=== PATIENT | female | born 1985 | race Caucasian/White ===

== ENCOUNTER → 2017-02-24 | Outpatient (CLI) | payer OTHER ==
[2017-02-24 13:08] LABS: AUTOMATED NEUTROPHIL # 3.8 TH/MM3 (1.8-7.7); BASOPHIL % 0.3 % (0.0-2.0); EOSINOPHIL # 0.1 TH/MM3 (0-0.4); EOSINOPHIL % 2.1 % (0.0-4.0); HEMATOCRIT 39.2 % (35.0-46.0); HEMO FLAGS DIFF FINAL; HEMOGLOBIN 13.5 GM/DL (11.6-15.3); LYMPH % 29.9 % (9.0-44.0); LYMPHOCYTE # 1.8 TH/MM3 (1.0-4.8); MEAN CELL VOLUME 87.4 FL (80.0-100.0); MEAN CORPUSCULAR HEMOGLOBIN 30.1 PG (27.0-34.0); MEAN CORPUSCULAR HGB CONC 34.4 % (32.0-36.0); MEAN PLATELET VOLUME 9.3 FL (7.0-11.0); MONO % 6.2 % (0.0-8.0); MONOCYTE # 0.4 TH/MM3 (0-0.9); NEUT % 61.5 % (16.0-70.0); PLATELET COUNT 198 TH/MM3 (150-450); RED BLOOD COUNT 4.48 MIL/MM3 (4.00-5.30); RED CELL DISTRIBUTION WIDTH 12.3 % (11.6-17.2); WHITE BLOOD COUNT 6.1 TH/MM3 (4.0-11.0)
[2017-02-24 13:22] LABS: BILIRUBIN, URINE NEG (NEG); BLOOD, URINE NEG (NEG); GLUCOSE,URINE NEG (NEG); KETONE, URINE NEG (NEG); NITRITE,URINE NEG (NEG); PH, URINE 7.5 (5.0-8.5); SQUAMOUS EPITHELIAL CELL URINE 1 /hpf (0-5); URINE COLOR LIGHT-YELLOW (YELLW/STRAW); URINE LEUKOCYTE ESTERASE NEG (NEG)
[2017-02-24 13:37] LABS: ANION GAP 7 MEQ/L (5-15); BICARBONATE 26.8 MEQ/L (21.0-32.0); BLOOD UREA NITROGEN 10 MG/DL (7-18); CHLORIDE 105 MEQ/L (98-107); CREATININE 0.65 MG/DL (0.50-1.00); GLOMERULAR FILTRATION RATE 104 ML/MIN (>89); GLUCOSE,FASTING 84 MG/DL (74-99); POTASSIUM 3.8 MEQ/L (3.5-5.1); SODIUM (NA) 139 MEQ/L (136-145)
[2017-02-24 14:53] LABS: BHCG SCREEN QUALITATIVE LESS THAN 1 MIU/ML (0-5)
[2017-02-24 18:37] LABS: HEMOGLOBIN A1C 4.8 % (4.3-6.0); HEMOGLOBIN A1a 1.1 %; HEMOGLOBIN A1b 0.7 %; HEMOGLOBIN Ao 86.3 %; HEMOGLOBIN F 1.4 %; HEMOGLOBIN LA1C 1.8 %; HEMOGLOBIN P3 3.3 %
== END ==
LOC: CPRE 11:07
DX: D25.9 Leiomyoma of uterus, unspecified (principal)
CPT/HCPCS: 36415; 80048; 81001; 83036; 84703; 85025; 86850; 86900; 86901

== ENCOUNTER 2017-02-26 05:17 | Observation (INO) | payer OTHER ==
[~2017-02-26] VITALS: Ht 170.2 cm; Wt 88.6 kg
[2017-02-26] MEDS ORDERED: GENTAMICIN INJ 130 MG in SODIUM CHLORIDE 0.9% INJ 100 ML IV PRN (05:45)
[2017-02-26] MEDS ORDERED: SODIUM CHLORID 0.9% 500 ML IV PRN (05:45)
[2017-02-26] MEDS ORDERED: LACTATED RINGER'S 1000 ML IV PRN (05:45)
[2017-02-26] MEDS ORDERED: POVIDONE IODINE 5% (ANTISEPSIS KIT) 4 APPLICATIONS EACH NARE PRN (05:45)
[2017-02-26] MEDS ORDERED: GABAPENTIN 300 MG CAP PO PRN (05:45)
[2017-02-26] MEDS ORDERED: ACETAMINOPHEN 500 MG CPLT PO PRN (05:45)
[2017-02-26] MEDS ORDERED: CLINDAMYCIN 900 MG/NS PREMIX 50 ML IV PRN (05:45)
[2017-02-26] MEDS ORDERED: CHLORHEXIDINE GLUCONATE 2 % 1 PACK (2 CLOTHS) TOPICAL PRN (05:45)
[2017-02-26] MEDS ORDERED: METOPROLOL TARTRATE 25 MG TAB PO PRN (05:45)
[2017-02-26] MEDS ORDERED: BUPIVACAINE/EPINEPHRINE 0.5% PF 10 ML VIAL ONE (07:32)
[2017-02-26] MEDS ORDERED: LACTATED RINGER'S 1000 ML INJ 1,000 ML IV SCH (10:51)
[2017-02-26] MEDS ORDERED: oxyCODONE/ACETAMINOPHEN 5 MG/325 MG TAB PO PRN (11:00)
[2017-02-26] MEDS ORDERED: ONDANSETRON ODT 4 MG TAB PO PRN (11:00)
[2017-02-26] MEDS: DOCUSATE SODIUM 100 MG CAP PO SCH (11:00)
[2017-02-26] MEDS ORDERED: ONDANSETRON HCL 4 MG/2 ML VIAL IVP PRN (11:00)
[2017-02-26] MEDS ORDERED: diphenhydrAMINE HCL 25 MG CAP PO PRN (11:00)
[2017-02-26] MEDS ORDERED: ZOLPIDEM TARTRATE 5 MG TAB PO PRN (11:00)
[2017-02-26] MEDS ORDERED: ACETAMINOPHEN/HYDROcodone 325 MG/5 MG TAB PO PRN (11:00)
--- NOTE | 2017-02-26 11:30 | HHI.PR ---
Immediate Post Op Note Procedure Date: Feb 26, 2017 Pre Op Diagnosis: (1) Fibroid, uterine (2) Dysmenorrhea Post Op Diagnosis: same as above with addition of cystotomy Surgeon: Brennen Stuart Hebrew Professor(s): none Procedure: TLH, BS, cysto, cystotomy repair, and vaginal laceration repair Findings: Normal pelvic anatomy other than fibroid uterus, parasitic fibroid attached to the bladder dome. Incidental cystotomy, approximately 2-3 cm, repaired with 3- 0 delayed absorbable stratafix suture. Small superficial distal vaginal laceration appreciated in the case, repaired with Monocryl Additional Information: Estimated blood loss 50 cc Urine output 500 cc Fluid replacement 1500 cc Specimens: Uterus, cervix, fallopian tubes to pathology Complications: Cystotomy Disposition to PACU then observation overnight Dictation number:[id number] Complications: cystotomy Specimen(s) removed: Uterus, cervix, fallopian tubes Estimated blood loss: 50 cc Anesthesia: General Drains: None IVF Urinary Output (mLs): 500 Patient to: PACU Patient Condition: Good Brennen Stuart MD Feb 26, 2017 11:30
--- NOTE | 2017-02-26 11:49 | HHI.DS ---
Discharge Summary Admission Date Feb 26, 2017 at 10:56 Discharge Date: Feb 27, 2017 Admitting Diagnosis Dysmenorrhea, fibroid uterus (1) Dysmenorrhea ICD Codes: N94.6 - Dysmenorrhea, unspecified (2) Fibroid, uterine ICD Codes: D25.9 - Leiomyoma of uterus, unspecified Procedures TLH, BS, Cysto, cystotomy repair Brief History 32 yo WF seen as an outpatient desiring hysterectomy, see H&P for details. underwent above procedure, was meeting milestones on POD #1 and was d/c home with gallego leg bag, plan to see pt in 1-2 weeks, likely remove leg bag in 10- 14 days. Significant Findings see operative report Hospital Course see history Pt Condition on Discharge: Good Discharge Disposition: Discharge Home Discharge Instructions DIET: Follow Instructions for: As Tolerated, No Restrictions Activities you can perform: Shower Only-No Bath, Shaving, Pelvic Rest, See Additionl Instruction (normal activities as tolerated no heavy lifting) Activities to avoid: Driving for 24 hrs, Lifting/Bending, Strenuous Activity, Sexual Activity Follow up Referrals: SCREEN WRITER - 1 Week @ [facility] with Brennen Stuart MD New Medications: Docusate Sodium (Colace) 100 Mg Capsule 100 MG PO BID for Constipation for 14 Days, #28 TAB Gabapentin (Gabapentin) 100 Mg Cap 100 MG PO TID for Pain Management for 10 Days, #90 CAP 0 Refills Ibuprofen (Ibuprofen) 600 Mg Tab 600 MG PO Q6H PRN for PAIN for 20 Days, #80 TAB 1 Refill Additional Information sent with percDriftToItet 5/325 #15 for breakthrough pain Brennen Stuart MD Feb 26, 2017 11:49
[2017-02-26] MEDS ORDERED: GABA100C4 PO (11:52)
[2017-02-26] MEDS ORDERED: IBUP-232 PO (11:52)
[2017-02-26] MEDS ORDERED: COLA100C5 PO (11:54)
[2017-02-26] MEDS ORDERED: MIDAZOLAM HCL 2 MG/2 ML VIAL ONE (11:55)
[2017-02-26] MEDS ORDERED: *morphine SULFATE 10 MG/ML PERIprocedure ONLY ONE (11:55)
[2017-02-26] MEDS ORDERED: GLYCOPYRROLATE 1 MG/5 ML SYRINGE IV PUSH ONE (12:00)
[2017-02-26] MEDS ORDERED: LIDOCAINE HCL 1% PF 5 ML SYRINGE OTHER ONE (12:00)
[2017-02-26] MEDS ORDERED: DEXAMETHASONE SOD PHOS 4 MG/ML VIAL IV ONE (12:00)
[2017-02-26] MEDS ORDERED: ONDANSETRON HCL 4 MG/2 ML VIAL IV ONE (12:00)
[2017-02-26] MEDS ORDERED: NEOSTIGMINE 5 MG/5 ML SYRINGE IV PUSH ONE (12:00)
[2017-02-26] MEDS ORDERED: ROCURONIUM INJ 50 MG/5 ML SYRINGE IV PUSH ONE (12:00)
[2017-02-26] MEDS ORDERED: PROPOFOL 200 MG/20 ML AMP IV ONE (12:00)
[2017-02-26 13:00] VITALS: BP 123/74; PULSE 53; RESP 12; TEMP 98; O2SAT 97
[2017-02-26] MEDS: KETOROLAC TROMETHAMINE 30 MG/ML (IVP) VIAL IVP SCH ×2 (13:31→18:13)
[2017-02-26] MEDS: GABAPENTIN 100 MG CAP PO SCH ×2 (13:31→18:12)
[2017-02-26] MEDS ORDERED: DO NOT ADM ANY ANTICOAGULANT DRUGS PRN (14:45)
[2017-02-26 17:55] VITALS: BP 123/74; PULSE 86; RESP 14; TEMP 98.1; O2SAT 98
--- NOTE | 2017-02-26 19:00 | HHI.PR ---
Subjective Remarks Doing well, pain is controlled, feels sore, not much apetite, tolerating fluids , just ordered dinner. Objective Vital Signs Vital Signs Date Time Temp Pulse Resp B/P (MAP) Pulse Ox O2 Delivery O2 Flow Rate FiO2 02/26/17 17:55 98.1 86 14 123/74 (90) 98 02/26/17 13:00 98.0 53 12 123/74 (90) 97 02/26/17 12:00 61 12 120/61 (80) 97 Room Air 02/26/17 11:45 58 17 114/68 (83) 97 Room Air 02/26/17 11:27 98.3 82 15 112/68 (83) 97 Room Air 02/26/17 06:22 99.0 72 20 114/82 (93) 98 I/O 02/25/17 02/25/17 02/25/17 02/26/17 02/26/17 02/26/17 07:00 15:00 23:00 07:00 15:00 23:00 Intake Total 1500 ml Output Total 600 ml 875 ml Balance 900 ml -875 ml Other 1500 ml Output Urine Total 550 ml 875 ml Estimated Blood Loss 50 ml Objective Remarks Chest is clear, regular rate and rhythm. Abdomen is soft and non-distended. Incisions is clean and dry. Ext no CCE. A/P Assessment and Plan s/p TLH, BS, Cysto, cystotomy and vaginal laceration repair. For dysmenorrhea, fibroid uterus. 1. POD #0: AF, VSS, doing well anticipate d/c home tomorrow. AM CBC - Discussed case and cystotomy with vaginal laceration with patient. 2. Cystotomy: plan for leg bag and home with gallego x 10-14d, remove in office. Brennen Stuart MD Feb 26, 2017 19:00
[2017-02-26] MEDS: SODIUM CHLORIDE 0.9% FLUSH 10 ML FLUSH IV FLUSH SCH (21:00)
[2017-02-26 22:42] VITALS: BP 105/67; PULSE 82; RESP 18; TEMP 99.3; O2SAT 97
[2017-02-27 00:25] VITALS: BP 106/63; PULSE 80; RESP 18; TEMP 98.5; O2SAT 97
[2017-02-27] MEDS: DOCUSATE SODIUM 100 MG CAP PO SCH (00:27)
[2017-02-27] MEDS: KETOROLAC TROMETHAMINE 30 MG/ML (IVP) VIAL IVP SCH ×2 (00:27→05:55)
[2017-02-27] MEDS: SODIUM CHLORIDE 0.9% FLUSH 10 ML FLUSH IV FLUSH PRN ×2 (00:29→05:55)
[2017-02-27 04:45] VITALS: BP 99/62; PULSE 66; RESP 16; TEMP 98.4; O2SAT 97
[2017-02-27 06:01] LABS: AUTOMATED NEUTROPHIL # 6.2 TH/MM3 (1.8-7.7); BASOPHIL % 0.2 % (0.0-2.0); EOSINOPHIL % 0.2 % (0.0-4.0); HEMATOCRIT 33.2 % (35.0-46.0); LYMPH % 25.8 % (9.0-44.0); LYMPHOCYTE # 2.4 TH/MM3 (1.0-4.8); MEAN CELL VOLUME 85.4 FL (80.0-100.0); MEAN CORPUSCULAR HEMOGLOBIN 30.8 PG (27.0-34.0); MEAN PLATELET VOLUME 9.4 FL (7.0-11.0); MONO % 7.7 % (0.0-8.0); MONOCYTE # 0.7 TH/MM3 (0-0.9); NEUT % 66.1 % (16.0-70.0); PLATELET COUNT 181 TH/MM3 (150-450); RED BLOOD COUNT 3.88 MIL/MM3 (4.00-5.30); RED CELL DISTRIBUTION WIDTH 12.1 % (11.6-17.2); WHITE BLOOD COUNT 9.4 TH/MM3 (4.0-11.0)
[2017-02-27 06:11] LABS: MEAN CORPUSCULAR HGB CONC 36.1 % (32.0-36.0)
--- NOTE | 2017-02-27 07:56 | HHI.PR ---
Subjective Remarks Doing well, pain is well controlled, eating well, TPO no n/v, minimal VB, + flatus Objective Vital Signs Vital Signs Date Time Temp Pulse Resp B/P (MAP) Pulse Ox O2 Delivery O2 Flow Rate FiO2 02/27/17 04:45 98.4 66 16 99/62 (74) 97 02/27/17 00:25 98.5 80 18 106/63 (77) 97 02/26/17 22:42 99.3 82 18 105/67 (80) 97 02/26/17 17:55 98.1 86 14 123/74 (90) 98 02/26/17 13:00 98.0 53 12 123/74 (90) 97 02/26/17 12:00 61 12 120/61 (80) 97 Room Air 02/26/17 11:45 58 17 114/68 (83) 97 Room Air 02/26/17 11:27 98.3 82 15 112/68 (83) 97 Room Air I/O 02/26/17 02/26/17 02/26/17 02/27/17 02/27/17 02/27/17 07:00 15:00 23:00 07:00 15:00 23:00 Intake Total 1500 ml Output Total 600 ml 875 ml 1100 ml Balance 900 ml -875 ml -1100 ml Other 1500 ml Output Urine Total 550 ml 875 ml 1100 ml Estimated Blood Loss 50 ml Result Diagram: 02/27/17 0444 Objective Remarks Chest is clear, regular rate and rhythm. Abdomen is soft and non-distended. Incisions is clean and dry. Ext no CCE. A/P Assessment and Plan s/p TLH, BS, Cysto, cystotomy and vaginal laceration repair. For dysmenorrhea, fibroid uterus. 1. POD #1: AF, VSS, doing well , d/c home today. AM CBC appropriate. 2. Cystotomy: plan for leg bag and home with gallego x 10-14d, remove in office. Brennen Stuart MD Feb 27, 2017 07:56
[2017-02-27 08:00] VITALS: BP 110/71; PULSE 75; RESP 15; TEMP 98.4; O2SAT 99
[2017-02-27] MEDS: SODIUM CHLORIDE 0.9% FLUSH 10 ML FLUSH IV FLUSH SCH (08:52)
[2017-02-27] MEDS: GABAPENTIN 100 MG CAP PO SCH (08:53)
--- NOTE | 2017-02-27 15:28 | MP ---
cc: MITALI DAHL MD DATE OF SURGERY: 02/26/2017. PREOPERATIVE DIAGNOSIS: 1. Fibroid uterus. 2. Dysmenorrhea. POSTOPERATIVE DIAGNOSIS: 1. Fibroid uterus. 2. Dysmenorrhea. 3. Cystotomy. OPERATION: Total laparoscopic hysterectomy, bilateral salpingectomy, cystoscopy, cystotomy repair and vaginal laceration repair, SURGEON: Mitali Dahl MD. FACTORY LAY OUT ENGINEER SURGEON: None. FINDINGS: 1. Normal external female genitalia, vagina and cervix. Normal intraabdominal anatomy. No adhesions. Fibroid uterus with paracytic fibroid attached to the dome of the bladder, normal uterus, fallopian tubes and ovaries bilaterally. Normal liver. 2. A 2 to 3 cm cystotomy at the dome of the bladder repaired with 3-0 delayed absorbable Stratafix suture in a single running unlocked layer. 3. Normal cystoscopy, bilateral efflux of ureters, intact water-tight closure of cystotomy repair. ESTIMATED BLOOD LOSS: 50 cc. FLUID REPLACEMENT: 1500 cc. URINE OUTPUT: 500 cc via Aleman. ANESTHESIA: General endotracheal anesthesia. ANTIBIOTICS: Gentamicin and clindamycin preoperatively. ADDITIONAL MEDICATIONS: Gabapentin and Tylenol preop. DVT PROPHYLAXIS: Sequential compression devices throughout the case. SPECIMENS: Uterus, fallopian tubes, cervix and fibroid to pathology routine. COMPLICATIONS: Cystotomy. COUNTS: Correct x2. TIME OUT: Done and correct. DISPOSITION: Stable to the post-anesthesia care unit and then to the floor for observation overnight. INDICATIONS FOR THE PROCEDURE: The patient is a 31-year-old 0, female who was seen in the outpatient setting. She has a history of dysmenorrhea that had been refractory to OCPs. She was given options for surgery and the patient desired a hysterectomy. She had a fibroid uterus diagnosed prior to the procedure and endometrial biopsy that was normal. DESCRIPTION OF THE PROCEDURE IN DETAIL: The patient was taken to the operating room and placed in the dorsal lithotomy position in yellow fin stirrups with her arms tucked. The abdomen and vagina were prepped and draped in the usual sterile fashion. An OG tube was inserted. Attention was turned to the vagina. A bivalve speculum was inserted. The uterus was sounded to 8 cm. A suture was applied to the anterior lip of the cervix and a large V-Care uterine manipulator was inserted. The Aleman was inserted. Attention was turned to the abdomen. Local anesthesia was used for all trocar sites. A 5 mm incision was made at Veliz's point and the abdomen was entered under direct Optiview technique. Abdominal survey was performed and no adhesions were noted around the umbilicus. A 10 mm vertical umbilical incision was made and the 10 mm trocar was inserted into the abdomen with direct optical view technique. The two 5-mm lower left quadrant ports and a single right lower quadrant port were inserted with direct intraabdominal visualization. The fallopian tubes were clamped, desiccated and transected along the mesosalpinx with the Enseal and left in the lower part of the pelvis. There was a paracytic fibroid appreciated attached to the dome of the bladder and this was attempted to be carefully dissected off; however, a cystostomy was made approximately 2-3 cm in length. This was closed with 3-0 delayed absorbable barbed Stratafix suture in a running unlocked single layer. Attention was turned back to the uterus. The round ligaments were transected and the anterior leaf of the broad ligament was dissected away and a bladder flap was developed. The posterior leaf was dissected away and the uterine arteries skeletonized. The uterine ovarian ligaments were clamped, desiccated and transected bilaterally. The uterine arteries were clamped, desiccated and transected with EnSeal. Using a monopolar hook, colpotomy was made. The uterus, fallopian tubes and fibroid were removed from the abdomen. There was some oozing on the left aspect of the cuff. Hemostasis was achieved with the EnSeal. The cuff was closed from left to right with 2-0 delayed absorbable barbed Stratafix suture and a second layer was done from right to left. The cuff appeared to be hemostatic. Cystoscopy was performed and the repair was water-tight with no visible suture present within the bladder and the ureters were effluxing bilaterally. The laparoscope was reinserted and the cystostomy was intact as well as hemostasis was appreciated at the cuff. The umbilical 10 mm fascial defect was closed with a single #0 Vicryl using the crossbow. The lower quadrant trocars were removed with intraabdominal visualization and the abdomen was desufflated. There was a small superficial laceration of the distal vagina that was repaired at the end of the case with 3-0 Monocryl. The skin of the umbilical sites were closed with 4-0 Monocryl and skin glue applied overlaying. The patient was awakened from anesthesia and transferred to the post-anesthesia care unit. MD JOHNNY Rabago/JP /11:18 AM /3:02 PM [id number]
== END 2017-02-27 10:06 | disposition home or self-care (01) ==
LOC: HSDC 05:17 → HSDI 10:56 → H1EA 12:23
PROVIDERS: ADMIT Obstetrics & Gynecology; ATTEND Obstetrics & Gynecology
DX: D25.9 Leiomyoma of uterus, unspecified (principal); N94.6 Dysmenorrhea, unspecified; C64.1 Malignant neoplasm of right kidney, except renal pelvis; S31.40XA Unspecified open wound of vagina and vulva, initial encounter; N83.8 Other noninflammatory disorders of ovary, fallopian tube and broad ligament; Z43.5 Encounter for attention to cystostomy
CPT/HCPCS: 00840; 51880; 57200; 58571; 85025; 88307; 96374; 96376; G0378; J1100; J1580; J1885; J2250; J2270; J2405; J2710; J3010; J7120

== ENCOUNTER 2017-03-04 19:42 | Emergency (ER) | payer OTHER ==
[~2017-03-04] VITALS: Ht 170.2 cm; Wt 88.6 kg
[~2017-03-04 19:42] MED LIST: COLA100C5 PO; GABA100C4 PO; IBUP-232 PO
[2017-03-04 19:43] VITALS: BP 151/77; PULSE 89; RESP 16; TEMP 98.4; O2SAT 100
[2017-03-04] MEDS ORDERED: SODIUM CHLOR 0.9% 1000 ML INJ 1,000 ML IV SCH (21:05)
--- NOTE | 2017-03-04 21:11 | PD ---
HPI Chief Complaint: Abdominal Pain Time Seen by Provider: 21:04 Travel History International Travel<30 days: No Contact w/Intl Traveler<30days: No Traveled to known affect area: No History of Present Illness HPI Patient comes emergency Department complaining of suprapubic abdominal pain that began shortly prior to arrival. Patient reports that a week ago she had a laparoscopic hysterectomy and fibroid removed from her bladder. Patient had an indwelling Aleman since secondary to allow the bladder to heal. Patient is supposed to have the Aleman removed on Thursday. Patient reports she is on Bactrim secondary to cellulitis around the laparoscopic incisions. Patient describes pain as a cramping like pain that waxes and wanes. Patient denies doing anything for this prior coming to the emergency department. Patient states she thought it was just like gassy pain however she has passed gas with no improvement of her symptoms. Denies any vaginal discharge, back pain, fevers , chest pain, shortness of breath, or previous episodes like this. Patient reports catheter seems to be working normally. 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 ) Cardiovascular Problems: No Chemotherapy: No Diabetes: No Endocrine: No Genitourinary: No Hepatitis: No Hiatal Hernia: No Immune Disorder: No Musculoskeletal: No Neurologic: Yes Psychiatric: No Reproductive: No Respiratory: No Radiation Therapy: No Thyroid Disease: No ?: Not Past Surgical History Abdominal Surgery: No AICD: No Arteriovenous Shunt: No Body Medical Devices: NONE Cardiac Surgery: No Ear Surgery: No Endocrine Surgery: No Eye Surgery: No Genitourinary Surgery: Yes (PARTIAL NEPHRECTOMY) Gynecologic Surgery: No Hysterectomy: Yes Insulin Pump: No Joint Replacement: No Oral Surgery: Yes (WISDOM TEETH REMOVED) Pacemaker: No Thoracic Surgery: No Social History Tobacco Use: No Substance Use: No Allergies-Medications (Allergen,Severity, Reaction): Coded Allergies: amoxicillin (Unverified Allergy, Severe, HIVES,RASH, 02/26/17) clavulanic acid (Unverified Allergy, Severe, HIVES,RASH, 02/26/17) Reported Meds & Prescriptions Reported Meds & Active Scripts Active Review of Systems Except as stated in HPI: all other systems reviewed are Neg Physical Exam Narrative GENERAL: Well-developed, well nourished, in no acute distress, and non-ill appearing. SKIN: Focused skin assessment warm and dry. HEAD: Atraumatic. Normocephalic. EYES: Pupils equal and round. EOMI. No scleral icterus. No injection or drainage. ENT: No nasal bleeding or discharge. Mucous membranes pink and moist. NECK: Trachea midline. Supple. No nuclear rigidity. CARDIOVASCULAR: Regular rate and rhythm. No murmur appreciated. RESPIRATORY: No accessory muscle use. No respiratory distress. GASTROINTESTINAL: Abdomen soft, nondistended, and no guarding. Hepatic and splenic margins not palpable. Normal bowel sounds 4. No pulsatile mass. Patient reports tenderness to palpation suprapubic area. MUSCULOSKELETAL: No obvious deformities. No clubbing. No cyanosis. No edema. Full range of motion. NEUROLOGICAL: Awake and alert. No obvious cranial nerve deficits. Motor grossly within normal limits. Normal speech. PSYCHIATRIC: Appropriate mood and affect; insight and judgment normal. Data Data Last Documented VS Vital Signs Date Time Temp Pulse Resp B/P (MAP) Pulse Ox O2 Delivery O2 Flow Rate FiO2 03/04/17 23:05 03/04/17 21:27 17 99 Room Air 03/04/17 19:43 98.4 89 Orders Orders Complete Blood Count With Diff (03/04/17 20:10) Comprehensive Metabolic Panel (03/04/17 20:10) Prothrombin Time / Inr (Pt) (03/04/17 20:10) Act Partial Throm Time (Ptt) (03/04/17 20:10) Urinalysis - C+S If Indicated (03/04/17 20:10) Ct Abd/Pel W Iv Contrast(Rout) (03/04/17 21:05) Iv Access Insert/Monitor (03/04/17 21:05) Ecg Monitoring (03/04/17 21:05) Oximetry (03/04/17 21:05) Morphine Inj (Morphine Inj) (03/04/17 21:15) Ondansetron Inj (Zofran Inj) (03/04/17 21:15) Sodium Chlor 0.9% 1000 Ml Inj (Ns 1000 M (03/04/17 21:05) Sodium Chloride 0.9% Flush (Ns Flush) (03/04/17 21:15) Iohexol 350 Inj (Omnipaque 350 Inj) (03/04/17 22:14) Ed Discharge Order (03/04/17 22:46) Labs Laboratory Tests Test 03/04/17 21:00 03/04/17 21:10 Urine Color YELLOW Urine Turbidity CLEAR Urine pH 6.5 Urine Specific [place] 1.016 Urine Protein NEG mg/dL Urine Glucose (UA) NEG mg/dL Urine Ketones NEG mg/dL Urine Occult Blood SMALL Urine Nitrite NEG Urine Bilirubin NEG Urine Urobilinogen LESS THAN 2.0 MG/DL Urine Leukocyte Esterase TRACE Urine RBC 42 /hpf Urine WBC 3 /hpf Urine Squamous Epithelial Cells <1 /hpf Urine Mucus FEW /lpf Microscopic Urinalysis Comment CATH-CULT NOT IND White Blood Count 8.0 TH/MM3 Red Blood Count 4.52 MIL/MM3 Hemoglobin 13.5 GM/DL Hematocrit 38.6 % Mean Corpuscular Volume 85.4 FL Mean Corpuscular Hemoglobin 29.9 PG Mean Corpuscular Hemoglobin Concent 35.0 % Red Cell Distribution Width 12.4 % Platelet Count 241 TH/MM3 Mean Platelet Volume 8.9 FL Neutrophils (%) (Auto) 55.9 % Lymphocytes (%) (Auto) 30.1 % Monocytes (%) (Auto) 7.2 % Eosinophils (%) (Auto) 6.4 % Basophils (%) (Auto) 0.4 % Neutrophils # (Auto) 4.5 TH/MM3 Lymphocytes # (Auto) 2.4 TH/MM3 Monocytes # (Auto) 0.6 TH/MM3 Eosinophils # (Auto) 0.5 TH/MM3 Basophils # (Auto) 0.0 TH/MM3 CBC Comment DIFF FINAL Differential Comment Prothrombin Time 9.8 SEC Prothromb Time International Ratio 1.0 RATIO Activated Partial Thromboplast Time 24.0 SEC Blood Urea Nitrogen 12 MG/DL Creatinine 0.80 MG/DL Random Glucose 84 MG/DL Total Protein 7.6 GM/DL Albumin 4.1 GM/DL Calcium Level 9.0 MG/DL Alkaline Phosphatase 90 U/L Aspartate Amino Transf (AST/SGOT) 21 U/L Alanine Aminotransferase (ALT/SGPT) 32 U/L Total Bilirubin 0.3 MG/DL Sodium Level 137 MEQ/L Potassium Level 3.8 MEQ/L Chloride Level 101 MEQ/L Carbon Dioxide Level 28.2 MEQ/L Anion Gap 8 MEQ/L Estimat Glomerular Filtration Rate 82 ML/MIN MDM Medical Decision Making Medical Screen Exam Complete: Yes Emergency Medical Condition: Yes Interpretation(s) Last Impressions Abdomen/Pelvis CT 03/04/172104 Signed Impressions: Service Date/Time: Saturday, March 04, 2017 22:05 - CONCLUSION: 1. No acute findings. Postoperative changes posterior aspect of right kidney with reported history of right kidney tumor. No suspicious masses on the current exam. No adenopathy or effusion. 2. Aleman catheter in bladder. No constipation. Danilo Barrientos MD Differential Diagnosis UTI, diverticulitis, constipation, colitis, abdominal pain, metabolic disturbance Narrative Course The patient presented with nonspecific abdominal pain. There was no significant history of vomiting or diarrhea and no fever. The patient appeared comfortable, well hydrated and the abdominal exam was mildly tender without guarding or rebound and no focal tenderness to me. Laboratory and radiologic/CT evaluation revealed no significant abnormalities. There was no evidence of an acute, surgical abdomen at this time. There was no clinical evidence to support appendicitis, bowel obstruction, cholecystitis/cholelithiasis, pancreatitis, perforation of gastric ulcer, colitis, diverticulitis, bacterial peritonitis, obstruction, volvulus, hernial incarceration or strangulation at this time. There was no evidence to support vascular pathology such as AAA, mesenteric ischemia. There was also no clinical evidence by history, exam or risk factors to suggest atypical presentation of cardiac disease such as ACS, AMI or atypical angina. No evidence to suggest genitourinary etiology as well. Clinical picture was discussed with the patient, as well as plan of care. The patient was instructed to follow up with their physician. Abdominal pain warnings were discussed with the patient. The patient is to return if worsens, pain worsens or changes, develop fever, inability to tolerate fluids with or without vomiting, unable to establish follow up or as needed. The patient agrees with plan. Patient in no obvious distress upon re-evaluation. All pertinent laboratory/ Radiology result(s) discussed with patient. Discussed patient with Dr. Tracy prior to discharge, who is in agreement with plan of care and disposition. Any questions/concerns in reference to patient diagnosis/condition discussed and clarified prior to patient's discharge. Reinforced sheer importance of close follow up with patient's primary physician or primary care clinic. Instructed patient to return to ED immediately, if symptoms return/worsen. Patient showed understanding of above instructions. Further instructions and recommendations were detailed in discharge paperwork. Patient ambulated without difficulty out of ED at discharge. Diagnosis Primary Impression: Abdominal pain Qualified Codes: R10.30 - Lower abdominal pain, unspecified Patient Instructions: Abdominal Pain (ED), General Instructions Additional Instructions: Follow-up with your surgeon on Thursday as scheduled. Return to the emergency department if symptoms get worse. Disposition: 01 DISCHARGE HOME Condition: Stable Shane Stone Mar 04, 2017 21:11
[2017-03-04] MEDS ORDERED: SODIUM CHLORIDE 0.9% FLUSH 10 ML FLUSH IV FLUSH PRN (21:15)
[2017-03-04] MEDS ORDERED: ONDANSETRON HCL 4 MG/2 ML VIAL IVP ONE (21:15)
[2017-03-04] MEDS ORDERED: MORPHINE SULFATE 4 MG/ML INJ IV PUSH ONE (21:15)
[2017-03-04 21:26] LABS: AUTOMATED NEUTROPHIL # 4.5 TH/MM3 (1.8-7.7); BASOPHIL % 0.4 % (0.0-2.0); EOSINOPHIL # 0.5 TH/MM3 (0-0.4); EOSINOPHIL % 6.4 % (0.0-4.0); HEMATOCRIT 38.6 % (35.0-46.0); HEMOGLOBIN 13.5 GM/DL (11.6-15.3); LYMPH % 30.1 % (9.0-44.0); LYMPHOCYTE # 2.4 TH/MM3 (1.0-4.8); MEAN CELL VOLUME 85.4 FL (80.0-100.0); MEAN CORPUSCULAR HEMOGLOBIN 29.9 PG (27.0-34.0); MEAN PLATELET VOLUME 8.9 FL (7.0-11.0); MONO % 7.2 % (0.0-8.0); MONOCYTE # 0.6 TH/MM3 (0-0.9); NEUT % 55.9 % (16.0-70.0); PLATELET COUNT 241 TH/MM3 (150-450); RED BLOOD COUNT 4.52 MIL/MM3 (4.00-5.30); RED CELL DISTRIBUTION WIDTH 12.4 % (11.6-17.2)
[2017-03-04 21:27] VITALS: RESP 17; O2SAT 99
[2017-03-04 21:36] LABS: PROTHROMBIN TIME - PATIENT 9.8 SEC (9.8-11.6)
[2017-03-04 21:43] LABS: BILIRUBIN, URINE NEG (NEG); BLOOD, URINE SMALL (NEG); GLUCOSE,URINE NEG (NEG); KETONE, URINE NEG (NEG); MUCUS URINE FEW /lpf (OCC); NITRITE,URINE NEG (NEG); PH, URINE 6.5 (5.0-8.5); SQUAMOUS EPITHELIAL CELL URINE <1 /hpf (0-5); URINE COLOR YELLOW (YELLW/STRAW); URINE LEUKOCYTE ESTERASE TRACE (NEG)
[2017-03-04 21:44] LABS: ALBUMIN 4.1 GM/DL (3.4-5.0); AST (GOT) 21 U/L (15-37); BICARBONATE 28.2 MEQ/L (21.0-32.0); BLOOD UREA NITROGEN 12 MG/DL (7-18); CHLORIDE 101 MEQ/L (98-107); GLOMERULAR FILTRATION RATE 82 ML/MIN (>89); GLUCOSE,RANDOM 84 MG/DL (74-106); SODIUM (NA) 137 MEQ/L (136-145)
[2017-03-04 21:45] LABS: ALT (GPT) 32 U/L (10-53)
[2017-03-04 21:47] LABS: ALKALINE PHOSPHATASE 90 U/L (45-117); TOTAL BILIRUBIN ADULT 0.3 MG/DL (0.2-1.0); TOTAL PROTEIN 7.6 GM/DL (6.4-8.2)
[2017-03-04] MEDS ORDERED: IOHEXOL 350 MG/ML 10 ML VIAL (for RAD DIAG) IVCONTRAST ONE (22:14)
--- NOTE | 2017-03-04 22:28 | RADRPT ---
EXAM DATE/TIME: 03/04/2017 22:05 [facility] COMPARISON: No previous studies available for comparison. INDICATIONS : Abdomen pain. IV CONTRAST: 80 cc Omnipaque 350 (iohexol) IV ORAL CONTRAST: No oral contrast ingested. RADIATION DOSE: 11.26 CTDIvol (mGy) MEDICAL HISTORY : Right kidney tumor. SURGICAL HISTORY : Hysterectomy. Fibroid removed from bladder. ENCOUNTER: Initial ACUITY: 1 day PAIN SCALE: 5/10 LOCATION: Bilateral lower quadrant TECHNIQUE: Volumetric scanning of the abdomen and pelvis was performed. Using automated exposure control and ad justment of the mA and/or kV according to patient size, radiation dose was kept as low as reasonably achievable to obtain optimal diagnostic quality images. DICOM format image data is available electro nically for review and comparison. FINDINGS: Eddie is unclear. Small hepatic cysts. Remainder of liver unremarkable. Spleen, adrenals, left kidney and pancreas unremarkable. Postoperative ablation no partial resection posterior right kidney. No free fluid or free air. No bowel obstruction. Aleman catheter present in the bladder. Mild constipa tion. CONCLUSION: 1. No acute findings. Postoperative changes posterior aspect of right kidney with reported history of right kidney tumor. No suspicious masses on the current exam. No adenopathy or effusion. 2. Aleman catheter in bladder. No constipation. Danilo Barrientos MD on March 04, 2017 at 22:23 Board Certified Radiologist. This report was verified electronically.
--- NOTE | 2017-03-04 22:33 | PD ---
Physical Exam Date Seen by Provider: Mar 04, 2017 Narrative Patient presents with suprapubic pain which started just prior to arrival. Data Data Last Documented VS Vital Signs Date Time Temp Pulse Resp B/P (MAP) Pulse Ox O2 Delivery O2 Flow Rate FiO2 03/04/17 21:27 17 99 Room Air 03/04/17 19:43 98.4 89 Orders Orders Complete Blood Count With Diff (03/04/17 20:10) Comprehensive Metabolic Panel (03/04/17 20:10) Prothrombin Time / Inr (Pt) (03/04/17 20:10) Act Partial Throm Time (Ptt) (03/04/17 20:10) Urinalysis - C+S If Indicated (03/04/17 20:10) Ct Abd/Pel W Iv Contrast(Rout) (03/04/17 21:05) Iv Access Insert/Monitor (03/04/17 21:05) Ecg Monitoring (03/04/17 21:05) Oximetry (03/04/17 21:05) Morphine Inj (Morphine Inj) (03/04/17 21:15) Ondansetron Inj (Zofran Inj) (03/04/17 21:15) Sodium Chlor 0.9% 1000 Ml Inj (Ns 1000 M (03/04/17 21:05) Sodium Chloride 0.9% Flush (Ns Flush) (03/04/17 21:15) Iohexol 350 Inj (Omnipaque 350 Inj) (03/04/17 22:14) Labs Laboratory Tests Test 03/04/17 21:00 03/04/17 21:10 Urine Color YELLOW Urine Turbidity CLEAR Urine pH 6.5 Urine Specific Bradford 1.016 Urine Protein NEG mg/dL Urine Glucose (UA) NEG mg/dL Urine Ketones NEG mg/dL Urine Occult Blood SMALL Urine Nitrite NEG Urine Bilirubin NEG Urine Urobilinogen LESS THAN 2.0 MG/DL Urine Leukocyte Esterase TRACE Urine RBC 42 /hpf Urine WBC 3 /hpf Urine Squamous Epithelial Cells <1 /hpf Urine Mucus FEW /lpf Microscopic Urinalysis Comment CATH-CULT NOT IND White Blood Count 8.0 TH/MM3 Red Blood Count 4.52 MIL/MM3 Hemoglobin 13.5 GM/DL Hematocrit 38.6 % Mean Corpuscular Volume 85.4 FL Mean Corpuscular Hemoglobin 29.9 PG Mean Corpuscular Hemoglobin Concent 35.0 % Red Cell Distribution Width 12.4 % Platelet Count 241 TH/MM3 Mean Platelet Volume 8.9 FL Neutrophils (%) (Auto) 55.9 % Lymphocytes (%) (Auto) 30.1 % Monocytes (%) (Auto) 7.2 % Eosinophils (%) (Auto) 6.4 % Basophils (%) (Auto) 0.4 % Neutrophils # (Auto) 4.5 TH/MM3 Lymphocytes # (Auto) 2.4 TH/MM3 Monocytes # (Auto) 0.6 TH/MM3 Eosinophils # (Auto) 0.5 TH/MM3 Basophils # (Auto) 0.0 TH/MM3 CBC Comment DIFF FINAL Differential Comment Prothrombin Time 9.8 SEC Prothromb Time International Ratio 1.0 RATIO Activated Partial Thromboplast Time 24.0 SEC Blood Urea Nitrogen 12 MG/DL Creatinine 0.80 MG/DL Random Glucose 84 MG/DL Total Protein 7.6 GM/DL Albumin 4.1 GM/DL Calcium Level 9.0 MG/DL Alkaline Phosphatase 90 U/L Aspartate Amino Transf (AST/SGOT) 21 U/L Alanine Aminotransferase (ALT/SGPT) 32 U/L Total Bilirubin 0.3 MG/DL Sodium Level 137 MEQ/L Potassium Level 3.8 MEQ/L Chloride Level 101 MEQ/L Carbon Dioxide Level 28.2 MEQ/L Anion Gap 8 MEQ/L Estimat Glomerular Filtration Rate 82 ML/MIN MDM Supervised Visit with SHANDRA: Yes Narrative Course I, Dr. Tracy, have reviewed the advance practice practitioner's documentation and am in agreement, met with the patient face to face, made the diagnosis, and the medical decision making was done by me. *My assessment and Findings: Patient is awake and alert and in no distress. Her abdomen is soft with minimal suprapubic tenderness. Please see Hernan Stone PA-C's note for results of laboratory and radiographic evaluation, ED course, final diagnosis and disposition Karla Tracy MD Mar 04, 2017 22:33
== END 2017-03-04 23:06 | disposition home or self-care (01) ==
LOC: NEPC 19:42
DX: R10.30 Lower abdominal pain, unspecified (principal); Z88.0 Allergy status to penicillin; Z88.8 Allergy status to other drugs, medicaments and biological substances
CPT/HCPCS: 74177; 80053; 81001; 85025; 85610; 85730; 96361; 96374; 96375; 99285; J2270; J2405; J7030; Q9967